=== PATIENT | female | born 1980 | race Caucasian/White ===

== ENCOUNTER → 2019-12-17 | Outpatient (CLI) | payer BC ==
[~2019-12-17] MED LIST: COLACE; COLACE100 MG PO; DIABETA2.5 MG PO; IBU-8800 MG PO; PERCOCET 325 MG1 TA2 PO; PRENATAL1 TA1 PO; SYNTHROID0.137 MG PO
== END | disposition home or self-care (01) ==
LOC: RAD 11:36
PROVIDERS: ATTEND Nurse Practitioner
DX: D35.2 Benign neoplasm of pituitary gland (principal); Z98.890 Other specified postprocedural states; Z90.49 Acquired absence of other specified parts of digestive tract; Z12.31 Encounter for screening mammogram for malignant neoplasm of breast

== ENCOUNTER → 2019-12-28 | Outpatient (CLI) | payer BC ==
[2019-12-28 13:33] LABS: ALBUMIN 3.7 gm/dl (3.1-4.5); ALKALINE PHOSPHATASE 57 U/L (45-117); BILIRUBIN, DIRECT 0.1 mg/dL (0.0-0.2); BUN 10 mg/dl (7-24); CHLORIDE 106 mmol/L (98-107); CREATININE 0.84 mg/dL (0.55-1.02); FREE T4 0.94 ng/dl (0.76-1.46); POTASSIUM 3.9 mmol/L (3.5-5.1); SGOT/AST 18 IU/L (3-35); SGPT/ALT 28 U/L (12-78); SODIUM 140 mmol/L (136-145); TOTAL PROTEIN 7.8 gm/dL (6.4-8.2)
[2019-12-28 14:46] LABS: VITAMIN D, 25-HYDROXY 24.2 ng/mL (30-100)
== END | disposition home or self-care (01) ==
LOC: LAB 12:33
PROVIDERS: ATTEND Internal Medicine
DX: E28.2 Polycystic ovarian syndrome (principal); E03.9 Hypothyroidism, unspecified; E55.9 Vitamin D deficiency, unspecified; D35.2 Benign neoplasm of pituitary gland

== ENCOUNTER → 2020-01-02 | Outpatient (CLI) | payer BC | END | disposition home or self-care (01) | LOC: MAMMO 12-17 11:52 | PROVIDERS: ATTEND Nurse Practitioner | DX: Z12.31 Encounter for screening mammogram for malignant neoplasm of breast (principal) ==

== ENCOUNTER → 2020-03-09 | Outpatient (CLI) | payer BC ==
[2020-03-09 10:06] LABS: ALBUMIN 3.8 gm/dl (3.1-4.5); BUN 12 mg/dl (7-24); CHLORIDE 111 mmol/L (98-107); CREATININE 0.87 mg/dL (0.55-1.02); FREE T4 1.67 ng/dl (0.76-1.46); SODIUM 139 mmol/L (136-145)
[2020-03-09 10:16] LABS: THYROID STIM HORMONE (HS) < 0.005 uIU/ml (0.358-4.75)
== END | disposition home or self-care (01) ==
LOC: LAB 09:15
PROVIDERS: ATTEND Internal Medicine
DX: O92.6 Galactorrhea (principal); E03.9 Hypothyroidism, unspecified; E28.2 Polycystic ovarian syndrome; E55.9 Vitamin D deficiency, unspecified; Z3A.00 Weeks of gestation of pregnancy not specified

== ENCOUNTER → 2021-01-02 | Outpatient (CLI) | payer BC | END | disposition home or self-care (01) | LOC: MRI 10:49 | PROVIDERS: ATTEND Nurse Practitioner | DX: E23.6 Other disorders of pituitary gland (principal); R43.0 Anosmia; Z86.39 Personal history of other endocrine, nutritional and metabolic disease ==

== ENCOUNTER 2021-04-06 10:47 | Emergency (ER) | payer BC ==
[~2021-04-06] VITALS: Ht 177.8 cm; Wt 81.6 kg
[2021-04-06 11:22] LABS: BASO % 0.4 % (0.0-1.0); EOS % 0.8 % (1.0-4.0); HEMATOCRIT 41.8 % (37.0-47.0); LYMPH # 1.3 10*3/uL (1.3-4.4); LYMPH % 26.5 % (27.0-41.0); MEAN CELL VOLUME 85.1 fl (81.0-99.0); MEAN CORPUSCULAR HGB 28.9 pg (27.0-31.0); MEAN PLATELET VOLUME 9.4 fl (9.6-12.3); MONO # 0.4 10*3/uL (0.1-1.0); MONO % 8.4 % (3.0-9.0); NEUT # 3.2 10*3/uL (2.3-7.9); NEUT % 63.7 % (47.0-73.0); PLATELET COUNT AUTOMATED 308 10*3/uL (130-400); RED BLOOD COUNT 4.91 10*6/uL (4.10-5.10); RED CELL DISTRI WIDTH 11.8 % (0-14.5)
[2021-04-06 11:41] LABS: ALKALINE PHOSPHATASE 53 U/L (45-117); BUN 13 mg/dl (7-24); CHLORIDE 109 mmol/L (98-107); CREATININE 0.87 mg/dL (0.55-1.02); POTASSIUM 3.6 mmol/L (3.5-5.1); SGOT/AST 16 IU/L (3-35); SGPT/ALT 26 U/L (12-78); SODIUM 136 mmol/L (136-145)
[2021-04-06 11:42] LABS: BETA-HCG, QUANT < 1.0 mIU/mL (1-3)
[2021-04-06 11:50] LABS: THYROID STIM HORMONE (HS) < 0.005 uIU/ml (0.358-4.75)
== END 2021-04-06 15:06 | disposition home or self-care (01) ==
LOC: ED 10:47
PROVIDERS: Emergency Medicine
DX: E23.7 Disorder of pituitary gland, unspecified (principal); R20.0 Anesthesia of skin; Z79.899 Other long term (current) drug therapy; Z86.018 Personal history of other benign neoplasm

== ENCOUNTER → 2021-04-17 | Outpatient (CLI) | payer BC | END | disposition home or self-care (01) | LOC: MRI 12:51 | PROVIDERS: ATTEND Nurse Practitioner | DX: G93.89 Other specified disorders of brain (principal); E22.0 Acromegaly and pituitary gigantism ==

== ENCOUNTER → 2021-09-18 | Outpatient (CLI) | payer BC ==
[2021-09-18 11:09] LABS: BASO % 0.6 % (0.0-1.0); EOS # 0.2 10*3/uL (0.0-0.4); EOS % 2.1 % (1.0-4.0); HEMATOCRIT 43.2 % (37.0-47.0); LYMPH # 1.5 10*3/uL (1.3-4.4); LYMPH % 20.3 % (27.0-41.0); MEAN CORPUSCULAR HGB 29.7 pg (27.0-31.0); MEAN CORPUSCULAR HGB CONC 33.8 g/dl (33.0-37.0); MEAN PLATELET VOLUME 9.4 fl (9.6-12.3); MONO # 0.5 10*3/uL (0.1-1.0); MONO % 7.5 % (3.0-9.0); NEUT % 69.4 % (47.0-73.0); PLATELET COUNT AUTOMATED 301 10*3/uL (130-400); RED BLOOD COUNT 4.91 10*6/uL (4.10-5.10); RED CELL DISTRI WIDTH 11.9 % (0-14.5); WHITE BLOOD COUNT 7.2 10*3/uL (4.8-10.8)
[2021-09-18 11:28] LABS: FREE T4 1.12 ng/dl (0.76-1.46)
[2021-09-18 11:33] LABS: THYROID STIM HORMONE (HS) 0.016 uIU/ml (0.358-4.75)
[2021-09-19 08:07] LABS: PROLACTIN 3.7 ng/mL (4.8-23.3)
== END | disposition home or self-care (01) ==
LOC: LAB 10:52
PROVIDERS: ATTEND Nurse Practitioner
DX: Z12.31 Encounter for screening mammogram for malignant neoplasm of breast (principal); D35.2 Benign neoplasm of pituitary gland; E03.9 Hypothyroidism, unspecified; R12 Heartburn

== ENCOUNTER → 2021-09-28 | Outpatient (CLI) | payer BC | END | disposition home or self-care (01) | LOC: MAMMO 09-24 08:30 | PROVIDERS: ATTEND Nurse Practitioner | DX: Z12.31 Encounter for screening mammogram for malignant neoplasm of breast (principal) ==

== ENCOUNTER → 2021-10-05 | Day surgery (SDC) | payer BC ==
[~2021-10-05] MED LIST changes: +ALDACTONE100 MG PO; +GLUCOPHAGE500 MG PO; +LEVOTHYROXINE100 MC2 PO; +LEVOTHYROXINE88 MCG PO; +PROTONIX40 MG PO; +QSYMIA 15 MG-91 EACH PO
[2021-10-05 06:57] VITALS: BP 116/72
[2021-10-05 07:56] VITALS: BP 95/65
[2021-10-05 08:11] VITALS: BP 97/66
[2021-10-05 08:26] VITALS: BP 105/69
== END | disposition home or self-care (01) ==
LOC: SDC 10-01 11:00
PROVIDERS: ATTEND Surgery
DX: Z12.11 Encounter for screening for malignant neoplasm of colon (principal); K29.50 Unspecified chronic gastritis without bleeding; D12.8 Benign neoplasm of rectum; D35.2 Benign neoplasm of pituitary gland; E03.9 Hypothyroidism, unspecified; Z79.899 Other long term (current) drug therapy